=== PATIENT | male | born 1975 | race Caucasian/White ===

== ENCOUNTER 2017-02-04 16:52 | Emergency (ER) | payer SELFPAY ==
[~2017-02-04 16:52] MED LIST: FISH-EPA1000 MG PO; KLONO1 PO; KLONO5 PO; LITHOBID3 PO; LORTAB 5 PO; XANAX1 MG PO
== END 2017-02-04 16:58 | disposition home or self-care (01) ==
LOC: ER 16:52
DX: K08.89 Other specified disorders of teeth and supporting structures (principal); F32.9 Major depressive disorder, single episode, unspecified; F41.9 Anxiety disorder, unspecified; Z91.030 Bee allergy status; Z88.8 Allergy status to other drugs, medicaments and biological substances; Z88.5 Allergy status to narcotic agent; Z79.899 Other long term (current) drug therapy
CPT/HCPCS: 99282; A9270-GY